=== PATIENT | female | born 2000 | race Caucasian/White ===

== ENCOUNTER 2020-08-04 11:45 | Inpatient (IN) ==
[2020-08-04 12:16] LABS: Random Urine Total Protein 33.4 mg/dL (0-12)
[2020-08-04 12:20] LABS: Cocaine Ur Negative (NEGATIVE); Urine Barbiturate Negative (NEGATIVE); Urine Benzodiazepines Negative (NEGATIVE); Urine Opiates Negative (NEGATIVE); Urine PCP Negative (NEGATIVE); Urine THC Negative (NEGATIVE)
[2020-08-04 12:29] LABS: Hematocrit 36.7 % (37.0-47.0); Hemoglobin 12.4 gm/dL (12.5-16.0); Mean Cell Volume 90.6 fl (78-100); Mean Corpuscular Hemoglobin 30.6 pg (27-31); Mean Corpuscular Hgb Conc 33.8 g/dl (32-36); Mean Platelet Volume 11.1 fl (8-12.5); Neutrophil # 9.8 K/mm3 (1.3-6.0); Neutrophil % 72.8 % (42-75.0); Platelet Count 273 K/mm3 (150-450); Red Blood Count 4.05 M/mm3 (4.2-5.4); Red Cell Distribution Width 14.1 % (11.5-14.0); White Blood Count 13.5 K/mm3 (4.0-10.5)
[2020-08-04 12:43] LABS: Albumin * 2.9 gm/dl (3.4-5.0); Anion Gap 14.9 mmol/L (6.8-13.8); BUN/Creatinine Ratio 13.7 (9.0-21.6); Bilirubin, Total 0.3 mg/dL (0.0-1.1); Ca. Corrected For Albumin 9.5 mg/dL (8.4-10.2); Calcium * 8.9 mg/dL (7.9-10.9); Carbon Dioxide 23.1 mmol/L (24-32.6); Total Protein 6.8 gm/dL (6.2-8.2)
[2020-08-04] MEDS ORDERED: OXYTOCIN/0.9 % SODIUM CHLORIDE 30 UNITS/500 ML BAG IV ONE (13:30)
[2020-08-04] MEDS ORDERED: ONDANSETRON 4 MG TAB.RAPDIS PO PRN (13:30)
[2020-08-04] MEDS: RINGER'S SOLUTION,LACTATED 1,000 ML IV ONE ×2 (17:12→21:39)
--- NOTE | 2020-08-04 17:42 | HP ---
Chief Complaint - Chief Complaint Date of Service: 08/04/20 Time of Service: 11:50 Chief Complaint: elevated BP History of Present Illness: 20 yo at 38w6d presents to L&D from office to r/o preeclampsia. Patient has been having headaches over the past 24 hours (none now) and was noted to have mildly elevated BPs in office. In L&D, she had a few elevated BPs and was frandy q2-6 min on monitor. Pr/Cr ratio was elevated to 292. Patient is being admitted for early labor and gestational hypertension. This complicated by anemia, GERD,THC use in 1st trimester, transfer of care from [facility] (20wks), and UTI. Rh positive Rubella immune GBS negative Medical History (Last Reviewed 08/04/20 @ 17:35 by Leonel Alejo DO) Asthma exercise-induced. No problems for "a few years" GERD (gastroesophageal reflux disease) Chlamydia Onset Date: ~2015 Irregular menses Surgical History: Surgical History (Last Reviewed 08/04/20 @ 17:35 by Leonel Alejo DO) No pertinent past surgical history Family History: Family History (Last Reviewed 08/04/20 @ 17:35 by Leonel Alejo DO) Mother Asthma Alcoholic Heart murmur Anxiety Depression Bipolar disorder Father Alive and well Grandfather Liver cancer, Onset Age: 50 paternal Grandmother Uterine cancer Social History: (Last Reviewed 08/04/20 @ 17:35 by Leonel Alejo DO) Social History: adopted: No foster care: No Marital status: single household members: none number of children: 0 current occupational status: employed current occupation: curated.by worker Highest level of school completed/degree received: some college, no degree Sexually Active: No Service: No Tobacco: Smoking Status: Never smoker Alcohol: alcohol intake: current alcohol intake frequency: a few times a week details: last drink approximately 7 weeks gestation before she knew she was Substance Use: substance use type: marijuana Dietary Habits: caffeine: Yes caffeine comment: 1 of thre other once a day Type: coffee daily servings of milk/calcium: 0-1 Exercise: Physical activity type: none Review Of Systems (GEN) - Review of Systems Generalized/Overall Review: Present: No Symptoms Reported EENTM: Present: No Symptoms Reported Respiratory: Present: No Symptoms Reported Cardiac: Present: No Symptoms Reported Abdominal: Present: No Symptoms Reported Genitourinary: Present: No Symptoms Reported Musculoskeletal: Present: No Symptoms Reported Neurological: Present: No Symptoms Reported Skin: Present: No Symptoms Reported Endocrine: Present: No Symptoms Reported Allergies/Adverse Reactions: Allergies Allergy/AdvReac Type Severity Reaction Status Date / Time No Known Allergies Allergy Verified 08/04/20 10:54 Home Medications: HOME MEDICATIONS ferrous sulfate 325 mg (65 mg iron) tablet,delayed release 325 mg PO DAILY #30 tab 05/19/20 [Last Taken Unknown] cefuroxime axetil 250 mg tablet 250 mg PO QHS 30 Days #30 tab 06/03/20 [Last Taken Unknown] docusate sodium 100 mg capsule 100 mg PO DAILY 06/30/20 [Last Taken 07/28/20] Vits96/Iron Fum/Folic [ S] 1 tab PO DAILY 08/04/20 [Last Taken Unknown] Exam - Exam Vital Signs: Vital Signs - Last Taken Temp 36.4 C 08/04/20 12:22 Pulse 95 08/04/20 12:22 Resp 16 08/04/20 12:22 BP 132/72 08/04/20 12:22 Pulse Ox 98 08/04/20 12:22 Constitutional: Present: Alert, Oriented x3, Cooperative, No distress ENT Exam: Present: hearing grossly normal Neck: Present: non-tender, supple, trachea midline. Absent: thyromegaly Breasts: Present: Exam deferred Respiratory: Present: lungs clear, no respiratory distress Cardiovascular/Chest: Present: normal peripheral pulses, regular rate, rhythm Abdomen: Present: soft, nontender, no rebound tenderness, other - Gravid /Rectal: Present: Other - Cervix 1/50/-2 Extremity: Present: no calf tenderness, lower extremity edema Skin Exam: Present: normal color, warm/dry, no cyanosis Neurologic: Present: alert, normal mood/affect, oriented x 3 Appearance: Present: appropriate appearance, appropriate insight Eye contact: Present: cooperative, good eye contact Thoughts: Present: normal thought pattern, normal mood /affect Diagnostic Studies: Abnormal Lab Results 08/04/20 08/04/20 08/04/20 Range/Units 11:33 12:15 12:15 WBC 13.5 H (4.0-10.5) K/mm3 RBC 4.05 L (4.2-5.4) M/mm3 Hgb 12.4 L (12.5-16.0) gm/dL Hct 36.7 L (37.0-47.0) % RDW 14.1 H (11.5-14.0) % Immature Gran % (Auto) 1.20 H (0.001-0.429) % Immature Gran # (Auto) 0.16 H (0.000-0.0310) K/mm3 Lymphocytes % 16.6 L (20-51) % Neutrophils # 9.8 H (1.3-6.0) K/mm3 Monocytes # 1.1 H (0.0-1.0) k/mm3 Carbon Dioxide 23.1 L (24-32.6) mmol/L Anion Gap 14.9 H (6.8-13.8) mmol/L Est GFR (Non-Af Amer) 160 H (60-130) mL/min Albumin 2.9 L (3.4-5.0) gm/dl U Random Total Protein 33.4 H (0-12) mg/dL U [place] Prot/Creat Ratio 292 H (0-199) mg/gm Laboratory Results WBC 13.5 K/mm3 (4.0-10.5) H 08/04/20 12:15 RBC 4.05 M/mm3 (4.2-5.4) L 08/04/20 12:15 Hgb 12.4 gm/dL (12.5-16.0) L 08/04/20 12:15 Hct 36.7 % (37.0-47.0) L 08/04/20 12:15 MCV 90.6 fl (78-100) 08/04/20 12:15 MCH 30.6 pg (27-31) 08/04/20 12:15 MCHC 33.8 g/dl (32-36) 08/04/20 12:15 RDW 14.1 % (11.5-14.0) H 08/04/20 12:15 Plt Count 273 K/mm3 (150-450) 08/04/20 12:15 MPV 11.1 fl (8-12.5) 08/04/20 12:15 Immature Gran % (Auto) 1.20 % (0.001-0.429) H 08/04/20 12:15 Immature Gran # (Auto) 0.16 K/mm3 (0.000-0.0310) H 08/04/20 12:15 Neutrophils % 72.8 % (42-75.0) 08/04/20 12:15 Lymphocytes % 16.6 % (20-51) L 08/04/20 12:15 Monocytes % 8.2 % (0.0-9) 08/04/20 12:15 Eosinophils % 0.8 % (0.0-3.0) 08/04/20 12:15 Basophils % 0.4 % (0.0-1.0) 08/04/20 12:15 Nucleated RBC % 0.0 k/mm3 (0-1) 08/04/20 12:15 Neutrophils # 9.8 K/mm3 (1.3-6.0) H 08/04/20 12:15 Lymphocytes # 2.24 k/mm3 (1.5-3.5) 08/04/20 12:15 Monocytes # 1.1 k/mm3 (0.0-1.0) H 08/04/20 12:15 Eosinophils # 0.1 k/mm3 (0.0-0.7) 08/04/20 12:15 Absolute Basophils 0.1 k/mm3 (0.0-0.1) 08/04/20 12:15 Sodium 138 mmol/L (132-142) 08/04/20 12:15 Plasma Sodium 138 mmol/L (130-142) 08/04/20 12:15 Potassium 4.0 mmol/L (3.4-4.6) 08/04/20 12:15 Chloride 104 mmol/L (97-106) 08/04/20 12:15 Carbon Dioxide 23.1 mmol/L (24-32.6) L 08/04/20 12:15 Anion Gap 14.9 mmol/L (6.8-13.8) H 08/04/20 12:15 BUN 7 mg/dL (3-23) 08/04/20 12:15 Creatinine 0.51 mg/dL (0.4-1.4) 08/04/20 12:15 Est GFR (Non-Af Amer) 160 mL/min (60-130) H 08/04/20 12:15 BUN/Creatinine Ratio 13.7 (9.0-21.6) 08/04/20 12:15 Random Glucose 95 mg/dL (70-110) 08/04/20 12:15 Calcium 8.9 mg/dL (7.9-10.9) 08/04/20 12:15 Calcium Adj for Albumin 9.5 mg/dL (8.4-10.2) 08/04/20 12:15 Total Bilirubin 0.3 mg/dL (0.0-1.1) 08/04/20 12:15 AST 22 U/L (0-48) 08/04/20 12:15 ALT 30 U/L (19-67) 08/04/20 12:15 Alkaline Phosphatase 161 U/L (50-170) 08/04/20 12:15 Total Protein 6.8 gm/dL (6.2-8.2) 08/04/20 12:15 Albumin 2.9 gm/dl (3.4-5.0) L 08/04/20 12:15 Ur Random Creatinine 114.5 mg/dL (60-200) 08/04/20 11:33 U Random Total Protein 33.4 mg/dL (0-12) H 08/04/20 11:33 U [place] Prot/Creat Ratio 292 mg/gm (0-199) H 08/04/20 11:33 Urine Opiates Screen Negative (NEGATIVE) 08/04/20 11:33 Barbiturate Screen Negative (NEGATIVE) 08/04/20 11:33 Ur Phencyclidine Scrn Negative (NEGATIVE) 08/04/20 11:33 Urine Amphetamine Negative (NEGATIVE) 08/04/20 11:33 U Benzodiazepines Scrn Negative (NEGATIVE) 08/04/20 11:33 Urine Cocaine Screen Negative (NEGATIVE) 08/04/20 11:33 Urine Marijuana (THC) Negative (NEGATIVE) 08/04/20 11:33 Assessment/Plan - Assessment/Plan (1) First stage of labor established Assessment: Admit for management/augmentation of labor. Epidural PRN. Monitor closely for severe features. Problem: Acute (2) Gestational hypertension Problem: Acute Qualifiers: Trimester: third trimester Qualified Code(s): O13.3 - Gestational [-induced] hypertension without significant proteinuria, third trimester (3) Chronic GERD Problem: Chronic (4) Recurrent UTI (urinary tract infection) complicating Problem: Chronic Qualifiers: Trimester: unspecified trimester Qualified Code(s): O23.40 - Unspecified infection of urinary tract in , unspecified trimester (5) Anemia Problem: Resolved Qualifiers: Anemia type: iron deficiency Iron deficiency anemia type: inadequate dietary iron intake Qualified Code(s): D50.8 - Other iron deficiency anemias (6) Marijuana smoker in remission Problem: Acute
--- NOTE | 2020-08-04 17:44 | PN ---
Progess Note - Interim Date: 08/04/20 Time: 17:15 Narrative: 08/04/20 17:42 Patient rating her contractions as mild. Vital signs stable. Occasional mildly elevated systolic blood pressure. FHT: 130 baseline, [reassuring] Contractions q 2-6 min Cervix: 1/50/-2, no oil changer the past 5 hours. AROM-clear Impression: Intrauterine at 38 6/7 weeks in early labor complicated by gestational hypertension without severe features. Plan: Membranes ruptured. Start low-dose Pitocin.
[2020-08-04] MEDS ORDERED: ONDANSETRON HCL/PF 2 MG/ML VIAL IV PRN (19:51)
[2020-08-04] MEDS ORDERED: NALOXONE HCL 1 MG/1 ML SYRG IV PRN (19:51)
[2020-08-04] MEDS ORDERED: fentaNYL CITRATE/PF 50 MCG/ML AMPUL IT SCH (20:00)
--- NOTE | 2020-08-04 22:01 | ANES ---
Anesthesia Pre Procedure Eval Vitals/Labs: Last Vital Signs Temp 36.4 C 08/04/20 12:22 Pulse 95 08/04/20 12:22 Resp 16 08/04/20 12:22 BP 132/72 08/04/20 12:22 Pulse Ox 98 08/04/20 12:22 HOME MEDICATIONS ferrous sulfate 325 mg (65 mg iron) tablet,delayed release 325 mg PO DAILY #30 tab 05/19/20 [Last Taken Unknown] cefuroxime axetil 250 mg tablet 250 mg PO QHS 30 Days #30 tab 06/03/20 [Last Taken Unknown] docusate sodium 100 mg capsule 100 mg PO DAILY 06/30/20 [Last Taken 07/28/20] Vits96/Iron Fum/Folic [ S] 1 tab PO DAILY 08/04/20 [Last Taken Unknown] Allergies/Adverse Reactions: Allergies Allergy/AdvReac Type Severity Reaction Status Date / Time No Known Allergies Allergy Verified 08/04/20 10:54 - Planned Procedure Planned Procedure: labor Medication List Reviewed:: Yes Allergies Verified: Yes Medical History (Last Reviewed 08/04/20 @ 21:59 by Tino Alvarez CRNA) Asthma exercise-induced. No problems for "a few years" GERD (gastroesophageal reflux disease) Chlamydia Onset Date: ~2015 Irregular menses Surgical History (Last Reviewed 08/04/20 @ 21:59 by Tino Alvarez CRNA) No pertinent past surgical history Family History (Last Reviewed 08/04/20 @ 21:59 by Tino Alvarez CRNA) Mother Asthma Alcoholic Heart murmur Anxiety Depression Bipolar disorder Father Alive and well Grandfather Liver cancer, Onset Age: 50 paternal Grandmother Uterine cancer - Family Anesthesia History Family History:: no untoward family reactions to anesthesia, no familial bleeding tendencies, no family history of clotting disorders, no family history of premature - Airway/Neck/Teeth Within Normal Limits:: Yes Teeth Condition: intact Neck Exam: full range of motion Mallampatti Score: 2 Thyromental (T-M) distance: > 6 cm Mandibulo Hyoid distance: > 3 cm - Respiratory Respiratory History: asthma Respiratory Physical: lungs clear Smoking Status: Never smoker - marijuana prior to Sleep Apnea currently treated: No Sleep Apnea by current assessment: No - Cardiovascular Tolerate Activity: Fair Heart Sounds: S1 & S2, Regular - Gastrointestinal NPO since: 2399 - Anesthesia Assessment and Plan ASA Class: PS, II, E Anesthesia Type Plan: Epidural - CSE for labor analgesia
--- NOTE | 2020-08-04 22:19 | ANES ---
Post Anesthesia Discharge - Transfer of Care Transfer of Care handoff given to nurse: Yes - Discharge from PACU Discharge from PACU when meets criteria: Yes - Comfortable post CSE.
--- NOTE | 2020-08-04 22:20 | ANES ---
Anesthesia Procedure Note Procedure Note: ANESTHESIA PROCEDURE NOTE Date of Procedure: 08/04/2020 Time of procedure: 10 PM. Performed by: JUANIS Doe CRNA, MSN Hospital Cook: Jennifer Giles RN. Preprocedure diagnosis: Active labor, labor pain. Post procedure diagnosis: Same. Procedure:Epidural for labor analgesia L3-4. Indications: Labor pain. Findings: See below. Details of the procedure: The patient was placed on the side of the bed in sitting positionand prepped with DuraPrep then draped in a sterile fashion. Lidocaine 1% was infiltrated to the skin and subcutaneous tissues at the level of the L3-4 interspace. An 18-gauge Touhy needle was used to approach the epidural space with loss of resistance technique. Once loss of resistance was achieved a 27-gauge spinal needle was passed through the epidural needle and CSF was contacted. After CSF returned, 20 mcg of fentanyl was injected in the spinal needle was removed the epidural catheter was then threaded approximately 4 cm in the epidural needle was removed. The catheter was taped in place and after careful aspiration 3 mL of 1.5% lidocaine with 1-200,000 epinephrine was injected without change in maternal heart rate or sensorium. . EBL: Minimal. Fluids: N/A. Specimen: N/A. Post procedure condition: The patient tolerated the procedure well with good relief. No complications were noted. Thank you for this consultation. Tino Alvarez CRNA, JUANIS, MSN
--- NOTE | 2020-08-04 22:28 | ANES ---
Post Anesthesia Assessment - Vital Signs Vitals: Last Vital Signs Temp 36.4 C 08/04/20 12:22 Pulse 95 08/04/20 12:22 Resp 16 08/04/20 12:22 BP 132/72 08/04/20 12:22 Pulse Ox 98 08/04/20 12:22 Airway Patency: Normal - Mental Status Level Of Consciousness: Awake, Alert, Appropriate - Pain Level Pain Score: 0 - N/V Assessment Nausea/Vomiting Presence: None Dehydration:: No
[2020-08-04] MEDS: BUPIVACAINE HCL/0.9 % NACL/PF 250 ML EP PRN (22:33)
[2020-08-05] MEDS: DEXTROSE 5%-LACTATED RINGERS 1,000 ML IV PRN ×2 (03:06→13:51)
[2020-08-05] MEDS ORDERED: ACETAMINOPHEN 500 MG TABLET PO ONE ×2 (09:11→18:35)
--- NOTE | 2020-08-05 09:44 | PN ---
Progess Note - Interim Date: 08/05/20 Time: 07:55 Narrative: 08/05/20 09:41 Patient comfortable with epidural complains of mild headache. Vital signs stable -occasional mildly elevated blood pressure. Pitocin at 8 mu/min. FHT: 150 baseline, reassuring. Contractions q 2-4 min Cervix: 4-5/80/-2 DTR - 1/4, no clonus Impression: Intrauterine at 39 weeks augmentation of labor for gestational hypertension. Plan: Continue present plan. Tylenol for headache. If headache does not resolv e will repeat labs and potentially start on magnesium sulfate. 08/05/20 09:44
[2020-08-05] MEDS ORDERED: RINGER'S SOLUTION,LACTATED 1,000 ML IV ONE (11:37)
[2020-08-05] MEDS: BUPIVACAINE HCL/0.9 % NACL/PF 250 ML EP PRN (13:06)
[2020-08-05] MEDS ORDERED: GENTAMICIN SULFATE IV ONE ×2 (14:33)
[2020-08-05] MEDS ORDERED: WATER IV ONE ×2 (14:33)
[2020-08-05] MEDS ORDERED: DEXTROSE 5% IV ONE ×2 (14:33)
[2020-08-05 15:04] LABS: Hematocrit 34.6 % (37.0-47.0); Hemoglobin 11.5 gm/dL (12.5-16.0); Mean Cell Volume 91.3 fl (78-100); Mean Corpuscular Hemoglobin 30.3 pg (27-31); Mean Corpuscular Hgb Conc 33.2 g/dl (32-36); Mean Platelet Volume 10.7 fl (8-12.5); Platelet Count 228 K/mm3 (150-450); Red Blood Count 3.79 M/mm3 (4.2-5.4); Red Cell Distribution Width 14.2 % (11.5-14.0); White Blood Count 25.1 K/mm3 (4.0-10.5)
[2020-08-05 15:45] LABS: Total Cells Counted 100
--- NOTE | 2020-08-05 15:50 | PN ---
Progess Note - Interim Date: 08/05/20 Time: 15:44 Narrative: 08/05/20 15:44 Patient [comfortable with epidural] Temp spike to 39.0. Blood pressure stable. Pitocin at 10 mu/min. FHT:[150] baseline, reassuring with occasional runs of minimum [id number] variability. Contractions q 2-4 min Cervix: 5-6/90/-2, caput forming Impression: Intrauterine at [39] weeks slow progress of labor, and now with signs of possible chorioamnionitis. Plan: Start on ampicillin and gentamicin intravenously. Patient counseled on risk/benefits/alternatives to section. We will get Covid test and reassess in 2 hours. If no further cervical change will proceed with section for arrest of dilation. We will proceed with sooner if maternal indications exist.
[2020-08-05 15:56] LABS: Band 7 % (0-2.0); Lymphocyte 4 % (20-51); Monocyte 3 % (0-9); Neutrophil 86 % (42-75); Neutrophil # 21.6 K/mm3 (1.3-6.0)
[2020-08-05 15:57] LABS: Platelet Estimate Normal (NORMAL); RBC Morphology Normal (NORMAL)
[2020-08-05] MEDS: AMPICILLIN SODIUM 2,000 MG in NORMAL SALINE 100 ML IV SCH ×2 (16:08→20:54)
--- NOTE | 2020-08-05 16:38 | ANES ---
Anesthesia Procedure Note Procedure Note: ANESTHESIA PROCEDURE NOTE Date of Procedure: 08/05/2020. Time of procedure: 1625. Performed by: Jaison Reeder CRNA Unix System Administrator: None. Preprocedure diagnosis: Incomplete relief labor pain. Post procedure diagnosis: Same. Procedure: Removal and reinsertion of labor epidural. Indications: The patient is a 20-year-old female in active labor with incomplete relief of labor pain with a indwelling labor epidural. Findings: See below. Details of the procedure: The patient was placed in a sitting position. The indwelling epidural catheter was removed intact. DuraPrep as well as Betadine swabs X3 was applied to the patient's back. Patient was then draped in a sterile fashion. Lidocaine 1% was infiltrated to the skin and subcutaneous tissues at the level of the L3-4 interspace. The epidural space was identified using a 18-gauge Tuohy needle with [id number] technique. Epidural ca theter was inserted to a depth of 9 centimeters at skin. Negative test dose was elicited using 3 mL of 1.5% preservative-free lidocaine plus epinephrine 1 200,000. The epidural catheter was then taped and secured in place. EBL: Minimal. Fluids: N/A. Specimen: N/A. Post procedure condition: The patient tolerated the procedure well. No complications were noted. Thank you for this consultation. Jaison Reeder CRNA
--- NOTE | 2020-08-05 17:20 | PN ---
Progess Note - Interim Date: 08/05/20 Time: 17:15 Narrative: 08/05/20 17:15 Patient comfortable with epidural Vital signs stable. Pitocin at 6 mu/min. FHT: 170 baseline, minimum variability with a few variable late decelerations after her epidural bolus which have since resolved. Variability has increased since then as well. Contractions q 3-4 min Cervix: 7-8/90/-1 Impression: Intrauterine at 39 weeks. Augmentation of labor for gestational hypertension. Presumed chorioamnionitis -status post ampicillin 2 g IV x1 and gentamicin 420 mg IV x1. Covid test negative. Plan: We will continue with attempt at vaginal delivery unless indicated for /maternal reasons.
[2020-08-05] MEDS ORDERED: SODIUM BICARBONATE 650 MG TABLET PO SCH (18:00)
[2020-08-05 18:25] LABS: Urine Bilirubin Negative (NEGATIVE); Urine Blood 50 /ul (NEGATIVE); Urine Ketone 5 mg/dL (NEGATIVE); Urine Nitrite Negative (NEGATIVE); Urine Protein 30 mg/dL (NEGATIVE); Urine Urobilinogen Normal (NORMAL); Urine pH 7.5 pH (5.0-7.0)
[2020-08-05 18:39] LABS: Urine Appearance Clear (CLEAR); Urine Color Yellow
[2020-08-05 18:40] LABS: Urine Bacteria TRACE; Urine WBC 0-5 /hpf (0-5)
--- NOTE | 2020-08-05 21:21 | PN ---
Progess Note - Interim Date: 08/05/20 Time: 21:17 Narrative: 08/05/20 21:17 Patient pushing well. Vital signs stable, no more fevers. Pitocin at 8 mu/min. FHT: 150 baseline, mild to moderate variability with variable decelerations during contractions returning quickly to baseline. Occasional variable late deceleration. Contractions q 24 min Cervix: Complete and pushing, 0 station but brings the head to +2 with pushing. Impression: Intrauterine at 39 weeks in labor. Gestational hypertension-stable. Chorioamnionitis-stable. Plan: Anticipate normal spontaneous vaginal delivery. Continue IV antibiotics.
[2020-08-05] MEDS ORDERED: BISACODYL 10 MG SUPP.RECT RC PRN (22:52)
[2020-08-05] MEDS ORDERED: OXYTOCIN/0.9 % SODIUM CHLORIDE 30 UNITS/500 ML BAG IV ONE (22:52)
[2020-08-05] MEDS ORDERED: oxyCODONE HCL/ACETAMINOPHEN 1 TAB TABLET PO PRN (22:52)
[2020-08-05] MEDS ORDERED: IBUPROFEN 800 MG TABLET PO PRN (22:52)
[2020-08-05] MEDS ORDERED: BENZOCAINE/MENTHOL 81 SPRAY CAN TP PRN (22:52)
[2020-08-05] MEDS ORDERED: HYDROCORTISONE 30 APPL TUBE TP PRN (22:52)
[2020-08-05] MEDS ORDERED: GLYCERIN/WITCH HAZEL LEAF 40 APPL BOX TP PRN (22:52)
[2020-08-05] MEDS ORDERED: SENNOSIDES 8.6 MG TABLET PO PRN (22:52)
--- NOTE | 2020-08-05 23:06 | OR ---
Operative Report - Dictated Report Narrative: Spontaneous vaginal delivery of a viable pale, limp, female at 2224 on 08/05/2020 with Apgars 1, 4, 7, weighing 3486 g in DONAVON position with tight nuchal cord x1 and terminal meconium. 70 second delay from delivery of head to delivery of body due to poor maternal propulsive effort. Cord clamping delayed approximately 30 seconds Placenta delivered complete, intact, with three vessel cord. Cultures of maternal and side of placenta sent to lab. Placenta sent to pathology. Estimated blood loss: Less than 50 ml Anesthesia: Epidural Lacerations: None History for MU History for MU Definition: * The number of deliveries resulting in a live the patient experienced prior to current hospitalization * The previous delivery of live twins or any live multiple gestation is co nsidered one live event. *If primagravida or nulliparous is documented select zero for the number of previous live births. Live Events: Live Events: 1
[2020-08-05] MEDS: IBUPROFEN 800 MG TABLET PO PRN (23:25)
[2020-08-06] MEDS ORDERED: AMPICILLIN SODIUM 2,000 MG in NORMAL SALINE 100 ML IV ONE (03:00)
[2020-08-06] MEDS ORDERED: DOCUSATE SODIUM 100 MG CAPSULE PO SCH (09:00)
[2020-08-06] MEDS: IBUPROFEN 800 MG TABLET PO PRN (11:02)
--- NOTE | 2020-08-06 12:34 | PN ---
Subjective - Date and Time Seen Date: 08/06/20 Time: 12:31 Objective - Vitals Vitals: Last Vital Signs Temp 36.0 C 08/06/20 07:17 Pulse 79 08/06/20 07:17 Resp 16 08/06/20 07:17 BP 128/61 08/06/20 07:17 Pulse Ox 100 08/06/20 07:17 Patient denies complaints. Lochia wnl abdomen - soft, nontender Uterus -firm, at umbilicus - 1 No calf tenderness Impression: day #1 - s/p spontaneous vaginal delivery. Gestational hypertension-resolved. Chorioamnionitis-resolved. Baby being transferred to [facility] for possible sepsis. Patient desires early discharge to be with baby. Plan: Discharge patient with preeclampsia and endometritis precautions. Follow- up in the office in 2 weeks. - Abnormal Lab Findings Abnormal Lab Findings: Abnormal Lab Results 08/05/20 08/05/20 Range/Units 15:00 18:10 WBC 25.1 H D (4.0-10.5) K/mm3 RBC 3.79 L (4.2-5.4) M/mm3 Hgb 11.5 L (12.5-16.0) gm/dL Hct 34.6 L (37.0-47.0) % RDW 14.2 H (11.5-14.0) % Neutrophils % (Manual) 86 H (42-75) % Band Neuts % (Manual) 7 H (0-2.0) % Lymphocytes % (Manual) 4 L (20-51) % Neutrophils # (Manual) 21.6 H (1.3-6.0) K/mm3 Lymphocytes # (Manual) 1.0 L (1.5-3.5) k/mm3 Urine Protein 30 H (NEGATIVE) mg/dL Urine Blood 50 H (NEGATIVE) /ul Urine RBC 10-25 H (0-5) /hpf Cauti Physician Documentation - Urinary Catheter Management Urethral (Brock) Date of Insertion: 08/04/20 Time of Insertion: 23:00 Date of Removal: 08/05/20 Time of Removal: 21:50 Assessment/Plan - Problems/Diagnosis (1) First stage of labor established Problem: Resolved (2) Gestational hypertension Problem: Resolved Qualifiers: Trimester: third trimester Qualified Code(s): O13.3 - Gestational [-induced] hypertension without significant proteinuria, third trimester (3) Chronic GERD Problem: Chronic (4) Recurrent UTI (urinary tract infection) complicating Problem: Resolved Qualifiers: Trimester: unspecified trimester Qualified Code(s): O23.40 - Unspecified infection of urinary tract in , unspecified trimester (5) Anemia Problem: Resolved Qualifiers: Anemia type: iron deficiency Iron deficiency anemia type: inadequate dietary iron intake Qualified Code(s): D50.8 - Other iron deficiency anemias (6) Marijuana smoker in remission Problem: Resolved (7) Chorioamnionitis, delivered, current hospitalization Problem: Resolved
--- NOTE | 2020-08-06 12:40 | DS ---
OB Discharge Summary (1) First stage of labor established Status: Resolved (2) Gestational hypertension Status: Resolved Qualifiers: Trimester: third trimester Qualified Code(s): O13.3 - Gestational [-induced] hypertension without significant proteinuria, third trimester (3) Chronic GERD Status: Chronic (4) Recurrent UTI (urinary tract infection) complicating Status: Resolved Qualifiers: Trimester: unspecified trimester Qualified Code(s): O23.40 - Unspecified infection of urinary tract in , unspecified trimester (5) Anemia Status: Resolved Qualifiers: Anemia type: iron deficiency Iron deficiency anemia type: inadequate dietary iron intake Qualified Code(s): D50.8 - Other iron deficiency anemias (6) Marijuana smoker in remission Status: Resolved (7) Chorioamnionitis, delivered, current hospitalization Status: Resolved Delivery Date: 08/05/20 Delivery Time: 22:24 :: 1 Para:: 0 Gestational weeks:: 39 Gestational days:: 0 Intrapartum Procedures: Spontaneous Vaginal Delivery, Delivered, Other - IV antibiotics, pitocin augmentation of labor Procedures: Antibiotics1 - one dose of ampicillin given PP. /OP Complications: No Complications Discharge Diagnosis: Term -Delivered, Gestational Hypertension, Rubella Immune - Discharge Information Date of Discharge: 08/06/20 Hospital Course: 20-year-old 1 now para 1 female admitted at 38-6/7 weeks in early labor complicated by gestational hypertension. Patient had a prolonged labor complicated by prolonged ruptured membranes and maternal fever of 39 C. Urine and blood cultures were obtained and patient was started on ampicillin 2 g IV every 6 hours and gentamicin 5 mg/kg every 24 hours. Delivery was complicated by tight nuchal cord and weak maternal propulsive efforts. Maternal course was uncomplicated. Discharge Location: Home Disposition: Home self-care Condition: Good Activity on Discharge:: Activity as tolerated, Pelvic Rest Discharge Diet: General/regular food Complete Home Medications List: Complete Home Medication List: ferrous sulfate 325 mg (65 mg iron) tablet,delayed release 325 mg PO DAILY #30 tab 05/19/20 cefuroxime axetil 250 mg tablet 250 mg PO QHS 30 Days #30 tab 06/03/20 docusate sodium 100 mg capsule 100 mg PO DAILY 06/30/20 Vits96/Iron Fum/Folic [ S] 1 tab PO DAILY 08/04/20 - Plan Discharge to:: Home Follow up in office in:: 2 weeks - [place] Information Weight (Grams): 3,486 Infant Sex: Female Score 1 min: 1 Score 5 min: 4 Infant Complications: Decreased Variability, Multiple Variable Decels, Other Other Complications: occasional late decelerations, tight nuchal x 1, terminal mec,
[2020-08-06 13:46] VITALS: BP 124/75
== END 2020-08-06 14:20 | disposition home or self-care (01) | DRG 807 ==
LOC: OBCLINIC 11:45 → OB 12:51
PROVIDERS: ADMIT Obstetrics & Gynecology; ATTEND Obstetrics & Gynecology
DX: F12.21 Cannabis dependence, in remission; O23.40 Unspecified infection of urinary tract in pregnancy, unspecified trimester; Z3A.39 39 weeks gestation of pregnancy; Z37.0 Single live birth; O69.81X0 Labor and delivery complicated by cord around neck, without compression, not applicable or unspecified; O41.1230 Chorioamnionitis, third trimester, not applicable or unspecified; O13.4 Gestational [pregnancy-induced] hypertension without significant proteinuria, complicating childbirth; O99.02 Anemia complicating childbirth; D50.8 Other iron deficiency anemias